=== PATIENT | female | born 1990 | race Hispanic/Latino ===

== ENCOUNTER 2023-12-19 07:49 | Emergency (ER) | payer BC, SELFPAY ==
[2023-12-19 07:53] VITALS: BP 107/74
[2023-12-19 08:07] VITALS: BMI 22.4
[2023-12-19 08:14] VITALS: BP 109/78
--- NOTE | 2023-12-19 08:15 | ED.GENMED ---
History of Present Illness
<Grey Cook PA-C - Last Filed: 12/19/23 09:56>
General
Chief Complaint: Abdominal Symptoms
Source: patient
Exam Limitations: none
Time Seen by Provider: 12/19/23 08:04
Travel History
Have you had any contact with someone who has COVID-19?: No
Do you have any symptoms of coronavirus? Fever > 100 degrees, chills, cough, shortness of breath, sore throat, loss of taste or smell, muscle aches, or headache?: No
History of Present Illness
History of Present Illness:
33-year-old female 11 and half weeks with her first presents with intractable nausea and vomiting. She was seen by her OB 2 weeks ago and was prescribed Reglan however this is not helping. She is unable to keep things down by
mouth. She notes mild diffuse abdominal pain but denies diarrhea or fever. No chest pain or shortness of breath. She had an ultrasound at her last OB visit which demonstrated intrauterine . She is healthy otherwise. No other complaints
at this time
Phy Exam
<Grey Cook PA-C - Last Filed: 12/19/23 09:56>
Physical Exam
Physical Exam:
General: Overall well-appearing female no acute respiratory distress
HEENT: Normocephalic atraumatic neck is supple mucosa moist
Heart: Regular rate and rhythm no murmurs
Lungs: Clear no wheezing
Abd: Soft, nontender, normal bowel sounds
Ext: NO cyanosis or edema
Course
<Grey Cook PA-C - Last Filed: 12/19/23 09:56>
Orders/Labs/Results
Orders:
Orders
12/19/23 08:13
CMP [Comprehensive Metabolic Panel] Urgent
Complete Blood Count/With Diff Urgent
Lipase Urgent
Ondansetron Injectable [Zofran] 4 mg IV NOW STA
12/19/23 08:14
0.9% Sodium Chloride 1000 ml [Nss] 1,000 ml IV BOLUS
Abnormal Lab Results
12/19/23
08:13
Hct 36.3 L %
(37.0-47.0)
MCV 77.7 L fL
(81.0-99.0)
MCH 26.6 L pg
(27.0-31.0)
RDW 15.1 H %
(11.5-14.5)
Eosinophils % 7.3 H %
(0-6)
Sodium 131 L mmol/L
(135-145)
Carbon Dioxide 21 L mmol/L
(22-30)
BUN 5 L mg/dl
(7-17)
Creatinine 0.4 L mg/dL
(0.6-1.0)
12/19/23 08:13
12/19/23 08:13
Vital Signs
Initial and Last Documented VS:
Initial Vital Signs
Temp Pulse Resp BP Pulse Ox
98.3 F 86 16 107/74 98
12/19/23 07:53 12/19/23 07:53 12/19/23 07:53 12/19/23 07:53 12/19/23 07:53
Last Documented Vital Signs
Temp Pulse Resp BP Pulse Ox
98.3 F 75 16 101/69 100
12/19/23 07:53 12/19/23 09:07 12/19/23 09:07 12/19/23 09:07 12/19/23 09:07
<Devon Whitfield, - Last Filed: 12/19/23 09:43>
Orders/Labs/Results
Orders:
Orders
12/19/23 08:13
CMP [Comprehensive Metabolic Panel] Urgent
Complete Blood Count/With Diff Urgent
Lipase Urgent
Ondansetron Injectable [Zofran] 4 mg IV NOW STA
12/19/23 08:14
0.9% Sodium Chloride 1000 ml [Nss] 1,000 ml IV BOLUS
Abnormal Lab Results
12/19/23
08:13
Hct 36.3 L %
(37.0-47.0)
MCV 77.7 L fL
(81.0-99.0)
MCH 26.6 L pg
(27.0-31.0)
RDW 15.1 H %
(11.5-14.5)
Eosinophils % 7.3 H %
(0-6)
Sodium 131 L mmol/L
(135-145)
Carbon Dioxide 21 L mmol/L
(22-30)
BUN 5 L mg/dl
(7-17)
Creatinine 0.4 L mg/dL
(0.6-1.0)
12/19/23 08:13
12/19/23 08:13
Vital Signs
Initial and Last Documented VS:
Initial Vital Signs
Temp Pulse Resp BP Pulse Ox
98.3 F 86 16 107/74 98
12/19/23 07:53 12/19/23 07:53 12/19/23 07:53 12/19/23 07:53 12/19/23 07:53
Last Documented Vital Signs
Temp Pulse Resp BP Pulse Ox
98.3 F 75 16 101/69 100
12/19/23 07:53 12/19/23 09:07 12/19/23 09:07 12/19/23 09:07 12/19/23 09:07
[place];Grey Cook PA-C - Last Filed: 12/19/23 09:56>
MDM/Problems Addressed
Differential Diagnosis Includes:
Nausea with vomiting in early . Abdominal exam benign do not suspect obstruction. Will check labs including lipase. Hydrate and give Zofran for nausea.
<Grey Cook PA-C - Last Filed: 12/19/23 09:56>
*Critical Care Note
Total Time (30-74mins, 75-104mins- exclusive of procedures): Not Applicable
<Grey Cook PA-C - Last Filed: 12/19/23 09:56>
Update Note
Update Note:
Reassessed patient. Nausea improved fluids running through the IV. Labs reviewed. Sodium is 131. Suspect hypovolemic. Will give it some more time and try oral challenge with water and/or applesauce
ED Attending Note
<Grey Cook PA-C - Last Filed: 12/19/23 09:56>
-
Portions of this chart may have been created with voice recognition software.� Occasional wrong word or��sound alike� substitutions may have occurred due to the inherent limitations of voice recognition software.
<Devon Whitfield, - Last Filed: 12/19/23 09:43>
ED Attending Note
Patient seen and examined by attending physician: Yes
I performed the substantive portion of visit, reviewed & personally made and approve the management plan that is documented in note by myself or VANESSA.: Yes
ED Attending Note:
33-year-old female who is approximate 11 weeks and has had progressive persistent nausea and hyperemesis. Patient my evaluation does feel better after IV fluids and after IV antiemetics. Patient denies any pelvic complaints. She
specifically denies vaginal bleeding or pain. No abdominal pain. Exam: Awake, no respiratory distress, no overt signs of severe volume contraction during exam. Assessment and plan: IV hydration, I did recommend small sips of liquids more
frequently as well small meals more frequently. She will follow-up with [facility].
Discharge Plan
Departure
Patient Disposition: Home (Routine Discharge)
Date of Disposition: 12/19/23
Time of Disposition: 09:44
Patient with high blood pressure during this ER visit?: No
Discharge Problem:
Nausea & vomiting
Instructions: Nausea and Vomiting, Adult (DC)
Prescriptions:
New
ondansetron 4 mg tablet,disintegrating
4 mg PO Q8H PRN (Reason: nausea and vomiting) Qty: 10 0RF
Referrals:
Yung Castañeda, [Family Provider] -
Activity Restrictions/Additional Instructions:
Drink plenty of clear liquids. Use zofran if needed for nausea. Please follow up with [facility] for further treatment. Return if needed otherwise.
Interventions
Interventions:
*Risk Screen - Suicide Last Done: 12/19/23 08:55
*General Assessment Last Done: 12/19/23 08:07
*Neglect/Abuse Screening Last Done: 12/19/23 08:55
ED- Fall Risk Assessment Last Done: 12/19/23 08:07
*ED COVID-19 Vaccine History Last Done: 12/19/23 07:53
LX-Njcvpa-Verrogupec Assessment Last Done: 12/19/23 08:07
[2023-12-19] MEDS: ZOFRAN 4 MG IV (08:18)
[2023-12-19] MEDS: NSS 1000 IV (08:19)
[2023-12-19 08:22] LABS: % Basophils 0.8 % (0-2); % Eosinophils 7.3 % (0-6); % Immature Granulocytes 0.3 % (0-0.5); % Lymphocytes 32.6 % (20.5-51.1); % Monocytes 5.7 % (1.7-9.3); % Neutrophils 53.3 % (42.2-75.2); Absolute Basophils 0.1 10^3/uL (0-0.2); Absolute Eosinophils 0.7 10^3/uL (0-0.7); Absolute Lymphocytes 3.2 10^3/uL (1.2-3.4); Absolute Monocytes 0.6 10^3/uL (0.1-0.6); Absolute Neutrophils 5.2 10^3/uL (1.4-6.5); Hematocrit 36.3 % (37.0-47.0); Hemoglobin 12.4 g/dL (12.0-16.0); Mean Corp Hgb Conc. 34.2 g/dL (33.0-37.0); Mean Corpuscular Hgb 26.6 pg (27.0-31.0); Mean Corpuscular Volume 77.7 fL (81.0-99.0); Mean Platelet Volume 8.8 fL (7.4-10.4); Nucleated Red Blood Cells % 0 %; Platelet Count 356 10^3/uL (130-400); Red Blood Cell Count 4.67 10^6/uL (4.20-5.40); Red Cell Dist. Width 15.1 % (11.5-14.5); White Blood Cell Count 9.8 10^3/uL (4.8-10.8)
[2023-12-19 08:40] LABS: ALT (SGPT) 20 U/L (0-35); AST (SGOT) 30 U/L (14-36); Albumin 4.2 g/dl (3.5-5.0); Alkaline Phosphatase 54 U/L (38-126); Blood Urea Nitrogen 5 mg/dl (7-17); Calcium 9.7 mg/dl (8.4-10.2); Carbon Dioxide 21 mmol/L (22-30); Chloride 103 mmol/L (98-107); Estimated Creatinine Clearance 89 ml/min; Glucose 82 mg/dl (70-99); Lipase 52 U/L (23-300); Potassium 3.9 mmol/L (3.5-5.1); Sodium 131 mmol/L (135-145); Total Bilirubin 0.5 mg/dl (0.2-1.3); Total Protein 7.2 g/dl (6.3-8.2); eGFR > 60.00
[2023-12-19 09:00] VITALS: BP 101/69
[2023-12-19 09:07] VITALS: BP 101/69
[2023-12-19 11:04] VITALS: BP 100/69
--- NOTE | 2023-12-19 11:05 | EDRN ---
Reviewed discharge instructions with patient. Verbalized understanding.
== END 2023-12-19 11:20 | disposition home or self-care (01) ==
LOC: EMR 07:49
PROVIDERS: Physician Assistant; EMERGENCY PHYSICIAN Emergency Medicine; FAMILY PHYSICIAN Family Medicine Sports Medicine
DX: O21.9 Vomiting of pregnancy, unspecified (principal); Z3A.11 11 weeks gestation of pregnancy
CPT/HCPCS: 99284; 96374; 96361; 80053; 83690; 85025

== ENCOUNTER → 2023-12-24 09:12 | Outpatient (REF) | payer BC, SELFPAY | LOC: PNTC 09:12 | PROVIDERS: ATTENDING PHYSICIAN Obstetrics & Gynecology | DX: Z36.0 Encounter for antenatal screening for chromosomal anomalies (principal); Z36.82 Encounter for antenatal screening for nuchal translucency | CPT/HCPCS: 36415; 76801; 76813 ==

== ENCOUNTER 2024-03-26 18:37 | Observation (INO) | payer BC, SELFPAY ==
[2024-03-26 15:56] VITALS: BP 102/65
[2024-03-26 16:28] LABS: % Basophils 0.4 % (0-2); % Immature Granulocytes 0.7 % (0-0.5); % Monocytes 3.7 % (1.7-9.3); % Neutrophils 77.2 % (42.2-75.2); Absolute Basophils 0.1 10^3/uL (0-0.2); Absolute Eosinophils 0.1 10^3/uL (0-0.7); Absolute Immature Granulocytes 0.1 10^3/uL (0-0.05); Absolute Lymphocytes 2.3 10^3/uL (1.2-3.4); Absolute Monocytes 0.5 10^3/uL (0.1-0.6); Absolute Neutrophils 10.4 10^3/uL (1.4-6.5); Hematocrit 32.8 % (37.0-47.0); Hemoglobin 11.1 g/dL (12.0-16.0); Mean Corp Hgb Conc. 33.8 g/dL (33.0-37.0); Mean Corpuscular Hgb 26.4 pg (27.0-31.0); Mean Corpuscular Volume 78.1 fL (81.0-99.0); Mean Platelet Volume 8.9 fL (7.4-10.4); Nucleated Red Blood Cells % 0 %; Platelet Count 286 10^3/uL (130-400); Red Cell Dist. Width 14.6 % (11.5-14.5); White Blood Cell Count 13.5 10^3/uL (4.8-10.8)
[2024-03-26 16:40] LABS: ALT (SGPT) < 10 U/L (0-35); AST (SGOT) 23 U/L (14-36); Albumin 3.8 g/dl (3.5-5.0); Alkaline Phosphatase 81 U/L (38-126); Blood Urea Nitrogen 7 mg/dl (7-17); Calcium 9.1 mg/dl (8.4-10.2); Carbon Dioxide 23 mmol/L (22-30); Chloride 107 mmol/L (98-107); Glucose 75 mg/dl (70-99); Potassium 4.5 mmol/L (3.5-5.1); Sodium 137 mmol/L (135-145); Total Bilirubin 0.3 mg/dl (0.2-1.3); Total Protein 6.8 g/dl (6.3-8.2); eGFR > 60.00
[2024-03-26 17:11] VITALS: BP 104/65; BMI 22.1
--- NOTE | 2024-03-26 18:13 | ED.GENMED ---
History of Present Illness
General
Chief Complaint: Abdominal Symptoms
Source: patient
Exam Limitations: none
Time Seen by Provider: 03/26/24 18:01
Travel History
Have you had any contact with someone who has COVID-19?: No
Do you have any symptoms of coronavirus? Fever > 100 degrees, chills, cough, shortness of breath, sore throat, loss of taste or smell, muscle aches, or headache?: No
History of Present Illness
History of Present Illness:
See MDM
Past History
Past History
ED Past Medical History: None
ED Past Surgical History: None
Social History
Tobacco: Non-smoker
Alcohol: None
Phy Exam
Physical Exam
Physical Exam:
See MDM
Course
Orders/Labs/Results
Orders:
Orders
03/26/24 16:17
Complete Blood Count/With Diff Urgent
Comprehensive Metabolic Panel Urgent
03/26/24 18:12
Consult PLANT TECH [PLANT TECH CONSULT] Urgent
Consulting Provider: Arabella Haines.
Was physician already notified: Yes
03/26/24 19:00
Dextrose 5%/0.9%Sodchl 1000 ml [D5/0.9% Sodium Chloride] 1,000 ml Potassium Chloride [KCl] 20 meq Mvi, Adult [Multivitamin] 10 ml FOLic ACID [Folvite] 1 mg Thiamine Injection 100 mg IV 125 mls/hr
Abnormal Lab Results
03/26/24
16:17
WBC 13.5 H 10^3/uL
(4.8-10.8)
Hgb 11.1 L g/dL
(12.0-16.0)
Hct 32.8 L %
(37.0-47.0)
MCV 78.1 L fL
(81.0-99.0)
MCH 26.4 L pg
(27.0-31.0)
RDW 14.6 H %
(11.5-14.5)
Abs Immat Gran (auto) 0.1 H 10^3/uL
(0-0.05)
Absolute Neuts (auto) 10.4 H 10^3/uL
(1.4-6.5)
Immature Gran % 0.7 H %
(0-0.5)
Neutrophils % 77.2 H %
(42.2-75.2)
Lymphocytes % 17.0 L %
(20.5-51.1)
Creatinine 0.4 L mg/dL
(0.6-1.0)
03/26/24 16:17
03/26/24 16:17
Vital Signs
Initial and Last Documented VS:
Initial Vital Signs
Temp Pulse Resp BP Pulse Ox
98.3 F 81 18 102/65 99
03/26/24 15:56 03/26/24 15:56 03/26/24 15:56 03/26/24 15:56 03/26/24 15:56
Last Documented Vital Signs
Temp Pulse Resp BP Pulse Ox
98.3 F 80 16 104/65 100
03/26/24 15:56 03/26/24 17:11 03/26/24 17:11 03/26/24 17:11 03/26/24 17:11
MDM/Problems Addressed
Differential Diagnosis Includes:
HPI and MDM Narrative:
33-year-old female presenting for abdominal cramping and vomiting. She is G1, P0 at 25 weeks gestation. prior to my evaluation, OB did call she can go up to labor and delivery for monitoring.
When I evaluated the patient, she does appear mildly uncomfortable. The Doppler is broken but I did a bedside ultrasound showing live IUP. When patient saw the fetus, she started to feel better. Heartbeat is in the 140s
Physical exam
General: Mildly uncomfortable
HEENT: protecting airway. Dry mucous membranes
Neck: appears supple
CV: No evidence of cyanosis
Resp: No accessory muscle use
Abd: Gravid abdomen
Extremities: No deformities
Neuro: alert
Psych: mildly anxious
Skin: Intact
Problems Addressed including Acute and Chronic Conditions affecting care:
1. Hyperemesis gravidarum
Acuity: acute
Prognosis: unstable
Details: Case discussed with OB who will evaluate and advise of delivery. She will order fluids
Differential Diagnosis (but not limited to): Hyperemesis, miscarriage, dehydration
Testing considered: Formal abdominal ultrasound
Drug therapy (if applicable): OTC meds, please see d/c instruction regarding Rx drugs
Amount and/or Complexity of Data Reviewed
Clinical info obtained from: Patient
External data reviewed: N/A
Labs I independently reviewed (but not limited to): Mild leukocytosis
Radiology: N/A
Pulse Ox: not hypoxic
EKG independently reviewed: N/A
Rebar Worker: N/A
Critical Care: N/A
Risk of Complication:
Social Determinants of health: Good social support
Discussed with other providers: OB
Escalation of Care includes Admit/Obs: Given persistent symptoms, will send to labor and delivery for monitoring
Occasional wrong word or 'sound a like' substitutions may have occurred due to the inherent limitations of voice recognition software. Read the chart carefully and recognize, using context, where substitutions have occurred.
*Critical Care Note
Total Time (30-74mins, 75-104mins- exclusive of procedures): Not Applicable
ED Attending Note
-
Portions of this chart may have been created with voice recognition software.� Occasional wrong word or��sound alike� substitutions may have occurred due to the inherent limitations of voice recognition software.
Discharge Plan
Departure
Patient Disposition: LDRP
Date of Disposition: 03/26/24
Time of Disposition: 18:13
Presentation/result/management discussed w/ accepting MD/DO: OB
Discharge Problem:
Hyperemesis gravidarum with dehydration
Prescriptions:
No Action
ondansetron 4 mg tablet,disintegrating
4 mg PO Q8H PRN (Reason: nausea and vomiting) Qty: 10 0RF
Referrals:
Yung Castañeda DO [Family Provider] -
Interventions
Interventions:
*Risk Screen - Suicide Last Done: 03/26/24 15:56
*General Assessment Last Done: 03/26/24 15:56
*Neglect/Abuse Screening Last Done: 03/26/24 15:56
ED- Fall Risk Assessment Last Done: 03/26/24 17:11
*Nursing Disposition Last Done: 03/26/24 18:28
ER-Jrmhkh-Ehhhulwqxj Assessment Last Done: 03/26/24 17:11
Discharge Date and Time
Print Language: KYRGYZ
[2024-03-26] MEDS: KCL 1021.20000000000005 MEQ IV (19:04)
[2024-03-26] MEDS: KCL 1021.20000000000005 ML IV (19:04)
[2024-03-26] MEDS: KCL 1021.20000000000005 MG IV ×2 (19:04)
[2024-03-26] MEDS: ZOFRAN 4 MG IV (19:54)
[2024-03-26 21:03] VITALS: BMI 23.0
[2024-03-26 23:38] LABS: Urine Albumin Negative (Neg - Trace); Urine Bilirubin Negative (Negative); Urine Character Clear (Clear); Urine Color Yellow; Urine Glucose Negative (Negative); Urine Ketone 3+ (Negative); Urine Leukocyte Negative (Negative); Urine Nitrite Negative (Negative); Urine Occult Blood Negative (Negative); Urine Urobilinogen Negative (Neg - 1+)
== END 2024-03-26 23:52 | disposition home or self-care (01) ==
LOC: LDRP 18:37
PROVIDERS: ADMITTING PHYSICIAN Obstetrics & Gynecology; EMERGENCY PHYSICIAN Student in an Organized Health Care Education/Training Program; FAMILY PHYSICIAN Family Medicine Sports Medicine
DX: O21.1 Hyperemesis gravidarum with metabolic disturbance (principal); R10.9 Unspecified abdominal pain; R19.7 Diarrhea, unspecified; E86.0 Dehydration; O09.512 Supervision of elderly primigravida, second trimester; D56.3 Thalassemia minor; D72.829 Elevated white blood cell count, unspecified; Z3A.25 25 weeks gestation of pregnancy; O99.891 Other specified diseases and conditions complicating pregnancy; R73.03 Prediabetes; E28.39 Other primary ovarian failure
CPT/HCPCS: 80053; 81003; 85025; 99284; G0378

== ENCOUNTER 2024-03-31 16:24 | Observation (INO) | payer BC, SELFPAY ==
[2024-03-31 16:32] VITALS: BP 107/73; BMI 22.2
[2024-03-31] MEDS: KCL 1021.20000000000005 ML IV (17:37)
[2024-03-31] MEDS: KCL 1021.20000000000005 MG IV ×2 (17:37)
[2024-03-31] MEDS: KCL 1021.20000000000005 MEQ IV (17:37)
[2024-03-31 17:46] LABS: Hematocrit 31.8 % (37.0-47.0); Hemoglobin 11.1 g/dL (12.0-16.0); Mean Corp Hgb Conc. 34.9 g/dL (33.0-37.0); Mean Corpuscular Hgb 26.8 pg (27.0-31.0); Mean Corpuscular Volume 76.8 fL (81.0-99.0); Mean Platelet Volume 9.1 fL (7.4-10.4); Platelet Count 267 10^3/uL (130-400); Red Blood Cell Count 4.14 10^6/uL (4.20-5.40); Red Cell Dist. Width 14.2 % (11.5-14.5); White Blood Cell Count 6.5 10^3/uL (4.8-10.8)
[2024-03-31 18:17] LABS: ALT (SGPT) 15 U/L (0-35); AST (SGOT) 29 U/L (14-36); Albumin 3.5 g/dl (3.5-5.0); Alkaline Phosphatase 81 U/L (38-126); Blood Urea Nitrogen 4 mg/dl (7-17); Calcium 9.2 mg/dl (8.4-10.2); Carbon Dioxide 20 mmol/L (22-30); Chloride 103 mmol/L (98-107); Estimated Creatinine Clearance 88 ml/min; Glucose 93 mg/dl (70-99); Potassium 3.5 mmol/L (3.5-5.1); Sodium 131 mmol/L (135-145); Total Bilirubin 0.4 mg/dl (0.2-1.3); Total Protein 6.3 g/dl (6.3-8.2); eGFR > 60.00
[2024-03-31] MEDS: ZOFRAN 4 MG IV (19:31)
[2024-03-31 19:51] LABS: Urine Albumin Negative (Neg - Trace); Urine Bilirubin Negative (Negative); Urine Character Clear (Clear); Urine Color Yellow; Urine Glucose Negative (Negative); Urine Ketone 2+ (Negative); Urine Leukocyte Negative (Negative); Urine Nitrite Negative (Negative); Urine Occult Blood Negative (Negative); Urine Urobilinogen Negative (Neg - 1+)
[2024-03-31] MEDS: TUMS 2 TABLET PO (21:53)
[2024-04-01] MEDS: ZOFRAN 4 MG IV (08:46)
== END 2024-04-01 12:10 | disposition home or self-care (01) ==
LOC: LDRP 16:24
PROVIDERS: ADMITTING PHYSICIAN Obstetrics & Gynecology
DX: K52.9 Noninfective gastroenteritis and colitis, unspecified (principal); Z3A.26 26 weeks gestation of pregnancy; R11.2 Nausea with vomiting, unspecified; D56.3 Thalassemia minor; O99.891 Other specified diseases and conditions complicating pregnancy; R73.03 Prediabetes; E28.39 Other primary ovarian failure; E86.0 Dehydration
CPT/HCPCS: 80053; 81003; 85027

== ENCOUNTER → 2024-04-02 16:51 | Outpatient (REF) | payer BC, SELFPAY | LOC: PNTC 16:51 | PROVIDERS: ATTENDING PHYSICIAN Obstetrics & Gynecology | DX: O09.529 Supervision of elderly multigravida, unspecified trimester (principal) | CPT/HCPCS: 76816 ==

== ENCOUNTER → 2024-05-20 16:40 | Outpatient (REF) | payer BC, SELFPAY | LOC: PNTC 16:40 | PROVIDERS: ATTENDING PHYSICIAN Obstetrics & Gynecology | DX: O09.529 Supervision of elderly multigravida, unspecified trimester (principal) | CPT/HCPCS: 76816 ==

== ENCOUNTER → 2024-06-16 16:38 | Outpatient (REF) | payer BC, SELFPAY | LOC: PNTC 16:38 | PROVIDERS: ATTENDING PHYSICIAN Obstetrics & Gynecology | DX: O09.519 Supervision of elderly primigravida, unspecified trimester (principal) | CPT/HCPCS: 36415; 76816; 86850; 86900; 86901 ==

== ENCOUNTER 2024-07-04 06:20 | Inpatient (IN) | payer BC, SELFPAY ==
[2024-07-04 06:34] VITALS: BP 118/76; BMI 25.7
[2024-07-04 07:25] LABS: Hematocrit 32.3 % (37.0-47.0); Hemoglobin 11.3 g/dL (12.0-16.0); Mean Corpuscular Hgb 26.8 pg (27.0-31.0); Mean Corpuscular Volume 76.5 fL (81.0-99.0); Mean Platelet Volume 9.8 fL (7.4-10.4); Platelet Count 186 10^3/uL (130-400); Red Blood Cell Count 4.22 10^6/uL (4.20-5.40); Red Cell Dist. Width 15.2 % (11.5-14.5); White Blood Cell Count 7.5 10^3/uL (4.8-10.8)
[2024-07-04] MEDS: ANCEF 10 IV (07:42)
[2024-07-04] MEDS: BICITRA 30 ML PO (07:42)
[2024-07-04] MEDS: LR 1000 IV ×2 (07:42→15:29)
[2024-07-04] MEDS: TYLENOL 1000 MG PO (07:43)
[2024-07-04] MEDS: TORADOL 15 MG IV ×3 (10:32→22:33)
[2024-07-04] MEDS: DEMEROL 12.5 MG IV (10:34)
[2024-07-04] MEDS: ZOFRAN 4 MG IV (15:28)
[2024-07-04] MEDS: VALTREX 2000 MG PO (18:36)
[2024-07-05] MEDS: TORADOL 15 MG IV (04:49)
[2024-07-05] MEDS: VALTREX 2000 MG PO (04:50)
[2024-07-05 05:33] LABS: Hematocrit 24.3 % (37.0-47.0); Hemoglobin 8.6 g/dL (12.0-16.0); Mean Corp Hgb Conc. 35.4 g/dL (33.0-37.0); Mean Corpuscular Volume 76.4 fL (81.0-99.0); Mean Platelet Volume 9.9 fL (7.4-10.4); Platelet Count 178 10^3/uL (130-400); Red Blood Cell Count 3.18 10^6/uL (4.20-5.40); Red Cell Dist. Width 15.1 % (11.5-14.5); White Blood Cell Count 12.1 10^3/uL (4.8-10.8)
--- NOTE | 2024-07-05 08:00 | W.PN.ANS.POP ---
Anesthesia Post Operative
- Anesthesia Post Op Note
Vital Signs Stable-See Nursing Note: Yes
Airway Patent: Yes
Adequate Pain Control: Yes
Change in Mental Status: No
Current Postoperative Nausea & Vomiting: No
Anesthesia Complications: No
General Anesthetic Recall: No
Unplanned Admission: No
Post Op Hydration Adequate: Yes
[2024-07-05] MEDS: FEOSOL 325 MG PO (09:06)
[2024-07-05] MEDS: SENOKOT-S 1 TABLET PO (09:07)
[2024-07-05] MEDS: MOTRIN 600 MG PO ×3 (10:37→22:42)
[2024-07-05] MEDS: TYLENOL 650 MG PO ×3 (10:37→22:42)
[2024-07-05] MEDS: MYLICON 80 MG PO (20:47)
[2024-07-06] MEDS: MYLICON 80 MG PO ×2 (00:10→16:57)
[2024-07-06] MEDS: MOTRIN 600 MG PO ×3 (06:10→22:00)
[2024-07-06] MEDS: TYLENOL 650 MG PO ×3 (06:11→22:01)
[2024-07-06] MEDS: FEOSOL 325 MG PO (10:38)
[2024-07-07] MEDS: TYLENOL 650 MG PO ×2 (04:26→10:27)
[2024-07-07] MEDS: MOTRIN 600 MG PO ×2 (04:26→10:28)
[2024-07-07] MEDS: SENOKOT-S 1 TABLET PO (08:09)
[2024-07-07] MEDS: FEOSOL 325 MG PO (08:09)
--- NOTE | 2024-07-07 11:19 | W.DS.TRANS ---
DC Summary - Spanish Interpreter/Translator
-
Discharge Instructions:
Discharge Diagnosis/Procedures s/p PLTCS
Driving Restrictions No driving for 2 weeks
Instructions:
Stand-Alone Forms:
Changes to Home Medications: No
Discharge Medications:
DC Medications w/original date entered in [facility]
No Meds [No Current Medications] 07/04/24
Home Medication Changes
Pending Results: No
Total time spent discharging patient (in min): 20
--- NOTE | 2024-07-07 14:29 | W.DCSUMMARY ---
Discharge Summary
Discharge Data
Date of Admission: 07/04/24
Date of Discharge: 07/07/24
-
Pending Results: No
Hospital Course
Patient is a 34yo G1 now P1001 who presented to L&D for scheduled elective PLTCS for suspected macrosomia. The c section was uncomplicated. She delivered a viable female infant weighing 7lb 3oz. POD#1 Hgb was 8.6 and she was asymptomatic for anemia.
She was meeting all of her postoperative milestones and was discharged on POD#3 with discharge instructions and return precautions. She was instructed to follow up in 2 weeks.
Discharge Plan
-
Patient Disposition: Home (Routine Discharge)
Discharge Diagnosis/Procedures: s/p PLTCS
Condition: Good
Driving Restrictions: No driving for 2 weeks
Stand Alone Forms: LDRP Delivery
Referrals:
Heath Henry MD [Active] - in two weeks
Arabella Haines DO [Family Provider] -
Prescriptions:
No Action
No Current Medications
0
Discharge Orders:
Discharge Patient (As Directed); Ordered 07/07/24
Ordered By: Reema Andres
Discharge Date and Time
Discharge Date/Time: 07/07/24 12:40
Print Language: AZERI
[2024-07-08 15:12] LABS: Syphilis/T. pallidum Ab Reflex Negative (Negative)
== END 2024-07-07 12:40 | disposition home or self-care (01) | DRG 787 ==
LOC: LDRP 06:20
PROVIDERS: ADMITTING PHYSICIAN Obstetrics & Gynecology; FAMILY PHYSICIAN Obstetrics & Gynecology
PROC: 10D00Z1 Extraction of Products of Conception, Low, Open Approach (ICD-10-PCS; 2024-07-04)
DX: O36.63X0 Maternal care for excessive fetal growth, third trimester, not applicable or unspecified (principal); E23.0 Hypopituitarism; O99.284 Endocrine, nutritional and metabolic diseases complicating childbirth; O99.892 Other specified diseases and conditions complicating childbirth; R73.03 Prediabetes; Z3A.39 39 weeks gestation of pregnancy; Z37.0 Single live birth
CPT/HCPCS: 88307; 59025; 85027; 86780; 86850; 86900; 86901

== ENCOUNTER 2024-08-13 07:56 | Observation (INO) | payer BC, SELFPAY ==
[2024-08-13 04:06] VITALS: BMI 22.0
[2024-08-13 04:07] VITALS: BP 96/62
[2024-08-13 04:30] LABS: Blood Urea Nitrogen 24 mg/dl (7-17); Carbon Dioxide 27 mmol/L (22-30); Chloride 103 mmol/L (98-107); Estimated Creatinine Clearance 66 ml/min; Glucose 107 mg/dl (70-99); Potassium 4.1 mmol/L (3.5-5.1); Sodium 141 mmol/L (135-145); eGFR > 60.00
[2024-08-13 04:31] LABS: ALT (SGPT) 40 U/L (0-35); AST (SGOT) 59 U/L (14-36); Albumin 4.1 g/dl (3.5-5.0); Alkaline Phosphatase 91 U/L (38-126); Calcium 9.4 mg/dl (8.4-10.2); Lipase 86 U/L (23-300); Total Bilirubin 0.3 mg/dl (0.2-1.3); Total Protein 6.7 g/dl (6.3-8.2)
[2024-08-13 04:32] LABS: APTT 38.3 Sec (23.4-35.0); INR 1.03; PT 13.3 Sec (11.4-14.6)
--- NOTE | 2024-08-13 04:34 | DOWNTIME ---
There was a [employer] Client Sausage Inspector Downtime on 08/13/2024 from 0100 to 08/13/2024 at 0355. Downtime documentation of patient's care, including medication administrations, has been reconciled in the electronic record per guidelines. Refer to the
patient's paper chart under the miscellaneous tab to see printed paper medication records and downtime forms.
--- NOTE | 2024-08-13 04:43 | ED.GENMED ---
History of Present Illness
<CRYSTAL Posadas - Last Filed: 08/13/24 06:15>
General
Chief Complaint: Abdominal Pain
Source: patient
Exam Limitations: none
Time Seen by Provider: 08/13/24 03:56
Nursing documentation reviewed up to this point in time: agreed with
History of Present Illness
History of Present Illness:
Patient is a 34 yo F w/ PMH of 6 weeks ago who presents w/ RUQ pain x4hrs. Pt reports pain woke her from sleep around 11 pm. Reports pain was in center of trunk in between ribs a first then moved to RUQ. Pain is severe and radiates to L
flank. Reports taking Tylenol w/o relief. Reports tenderness to the touch and being unable to sit still due to pain. Also reports 1 episode of vomiting when pain began. Reports it was a lot of vomit and tasted bitter. Denies any nausea,
constipation, diarrhea, GERMAN, dizziness, or other pains. Denies any new foods or recent illness. Denies any similar episodes previously. Report pain has been improving since laying still in ED bed. She denies any hx of kidney or gallstones. Notes
family hx of gallstones & gallbladder removal in her maternal aunt.
Past History
<CRYSTAL Posadas - Last Filed: 08/13/24 06:15>
Past History
ED Past Medical History: None
ED Past Surgical History: None
Social History
Tobacco: Non-smoker
Alcohol: None
Review of Systems
<CRYSTAL Posadas - Last Filed: 08/13/24 06:15>
Review of Systems
Constitutional: Denies fever, fatigue or chills
Respiratory: Denies trouble breathing
Cardiac: Denies chest pain or palpitations
ABD/GI: Reports abdominal pain and vomiting; Denies nausea, diarrhea or constipated
: Reports no symptoms
Musculoskeletal: Reports no symptoms
Neurological: Denies dizzy or headache
Phy Exam
<CRYSTAL Posadas - Last Filed: 08/13/24 06:15>
General Physical Exam
General Presentation: moderate distress
General age: appears stated age
General Habitus: normal
Cardiovascular Exam
Cardiovascular Exam: regular rate/rhythm, no edema, no gallop and no murmur
Pulmonary Exam
Pulmonary Exam: lungs clear, no respiratory distress, no rales, no crackles, no rhonchi and no wheezing
Course
<CRYSTAL Posadas - Last Filed: 08/13/24 06:15>
Orders/Labs/Results
Orders:
Orders
08/13/24 03:57
Urinalysis Reflex To Culture Urgent
US Abdomen Complete/Upper Urgent
Comment:
Reason For Exam: ruq abd pain
08/13/24 04:08
Complete Blood Count/With Diff Urgent
Comprehensive Metabolic Panel Urgent
Lipase Urgent
PTT Urgent
Prothrombin Time Urgent
Abnormal Lab Results
08/13/24
04:08
WBC 11.7 H 10^3/uL
(4.8-10.8)
RBC 4.10 L 10^6/uL
(4.20-5.40)
Hgb 10.9 L g/dL
(12.0-16.0)
Hct 32.7 L %
(37.0-47.0)
MCV 79.8 L fL
(81.0-99.0)
MCH 26.6 L pg
(27.0-31.0)
Absolute Neuts (auto) 7.6 H 10^3/uL
(1.4-6.5)
Absolute Monos (auto) 0.7 H 10^3/uL
(0.1-0.6)
APTT 38.3 H Sec
(23.4-35.0)
BUN 24 H mg/dl
(7-17)
Glucose 107 H mg/dl
(70-99)
AST 59 H U/L
(14-36)
ALT 40 H U/L
(0-35)
08/13/24 04:08
08/13/24 04:08
Vital Signs
Initial and Last Documented VS:
Initial Vital Signs
Temp Pulse Resp BP Pulse Ox
98.0 F 60 16 96/62 98
08/13/24 04:07 08/13/24 04:07 08/13/24 04:07 08/13/24 04:07 08/13/24 04:07
Last Documented Vital Signs
Temp Pulse Resp BP Pulse Ox
98.0 F 86 16 111/84 99
08/13/24 04:07 08/13/24 06:00 08/13/24 06:00 08/13/24 06:00 08/13/24 06:00
<Alfredo Gilliam, DO - Last Filed: 08/13/24 06:07>
Orders/Labs/Results
Orders:
Orders
08/13/24 03:57
Urinalysis Reflex To Culture Urgent
US Abdomen Complete/Upper Urgent
Comment:
Reason For Exam: ruq abd pain
08/13/24 04:08
Complete Blood Count/With Diff Urgent
Comprehensive Metabolic Panel Urgent
Lipase Urgent
PTT Urgent
Prothrombin Time Urgent
Abnormal Lab Results
08/13/24
04:08
WBC 11.7 H 10^3/uL
(4.8-10.8)
RBC 4.10 L 10^6/uL
(4.20-5.40)
Hgb 10.9 L g/dL
(12.0-16.0)
Hct 32.7 L %
(37.0-47.0)
MCV 79.8 L fL
(81.0-99.0)
MCH 26.6 L pg
(27.0-31.0)
Absolute Neuts (auto) 7.6 H 10^3/uL
(1.4-6.5)
Absolute Monos (auto) 0.7 H 10^3/uL
(0.1-0.6)
APTT 38.3 H Sec
(23.4-35.0)
BUN 24 H mg/dl
(7-17)
Glucose 107 H mg/dl
(70-99)
AST 59 H U/L
(14-36)
ALT 40 H U/L
(0-35)
08/13/24 04:08
08/13/24 04:08
Vital Signs
Initial and Last Documented VS:
Initial Vital Signs
Temp Pulse Resp BP Pulse Ox
98.0 F 60 16 96/62 98
08/13/24 04:07 08/13/24 04:07 08/13/24 04:07 08/13/24 04:07 08/13/24 04:07
Last Documented Vital Signs
Temp Pulse Resp BP Pulse Ox
98.0 F 86 16 111/84 99
08/13/24 04:07 08/13/24 06:00 08/13/24 06:00 08/13/24 06:00 08/13/24 06:00
<CRYSTAL Posadas - Last Filed: 08/13/24 06:15>
MDM/Problems Addressed
Differential Diagnosis Includes:
cholelithiasis, cholecystitis, nephrolithiasis
<CRYSTAL Posadas - Last Filed: 08/13/24 06:15>
*Critical Care Note
Total Time (30-74mins, 75-104mins- exclusive of procedures): Not Applicable
<Alfredo Gilliam DO - Last Filed: 08/13/24 06:07>
*Radiology
Radiology exam reviewed: radiology read reviewed
*Pulse Oximetry
Patient hypoxic: no
Data Reviewed
Review of Other/Old Records Reveals: Labs
Source: patient and family
<Alfredo Gilliam DO - Last Filed: 08/13/24 06:07>
Update Note
Update Note:
RUQ ABDOMINAL ULTRASOUND
IMPRESSION
Mobile small gallstones in the gallbladder is distended. Mild gallbladder wall thickening at 5.6 mm with mild edema in the wall and trace pericholecystic fluid. No sonographic Allen's sign (but the patient received pain medications). No other
signs of cholecystitis. Common bile duct is unremarkable at 3.1 mm. Constellation findings may reflect early acute cholecystitis in the correct clinical context. Other considerations include hepatitis or other fluid overloaded state, consider
further workup or followup ultrasound especially if symptoms persist or progress.
Remainder of the visualized upper abdomen is unremarkable.
[Case discussed with Dr. Gilliam at 5:50 AM Eastern time
ED Attending Note
<CRYSTAL Posadas - Last Filed: 08/13/24 06:15>
-
Portions of this chart may have been created with voice recognition software.� Occasional wrong word or��sound alike� substitutions may have occurred due to the inherent limitations of voice recognition software.
<Alfredo Gilliam DO - Last Filed: 08/13/24 06:07>
ED Attending Note
Patient seen and examined by attending physician: Yes
I performed the substantive portion of visit, reviewed & personally made and approve the management plan that is documented in note by myself or VANESSA.: Yes
ED Attending Note:
34-year-old female presents to the emergency department with right upper quadrant abdominal pain that has been present for the last 4 hours. She states that the pain waxed and waned and was severe. She did take Tylenol without initial relief.
Denies fever, chills, chest pain, or shortness of breath. Patient was seen in conjunction with the PA student. I have reviewed and agree with the history and treatment plan presented. On my independent physical exam, patient is awake, alert, and
oriented x3, no acute distress on exam. Negative McBurney's point tenderness. Negative Allen sign. Good bowel sounds x 4 quadrants. Heart is regular rate rhythm. Lungs are clear to auscultation bilaterally.
Patient is by 5 weeks. She is under the care of of Dr. Henry. She still takes vitamins.
Discharge Plan
Departure
Patient Disposition: Admit
Date of Disposition: 08/13/24
Time of Disposition: 06:06
Admit to: Med/Surg
Admit to doctor: Byron
Presentation/result/management discussed w/ accepting MD/DO: Byron
Condition: Fair
Discharge Problem:
Acute cholecystitis
Prescriptions:
No Action
No Current Medications
0
Referrals:
NONE,* [Family Provider] -
Interventions
Interventions:
*Risk Screen - Suicide Last Done: 08/13/24 04:20
*General Assessment Last Done: 08/13/24 04:20
*Neglect/Abuse Screening Last Done: 08/13/24 04:20
ED- Fall Risk Assessment Last Done: 08/13/24 04:05
*ED COVID-19 Vaccine History Last Done: 08/13/24 04:20
MG-Wifviz-Brwsjgnsfp Assessment Last Done: 08/13/24 04:05
Discharge Date and Time
Print Language: POLISH
[2024-08-13 05:04] VITALS: BP 91/74
[2024-08-13 05:06] LABS: % Basophils 0.4 % (0-2); % Eosinophils 1.5 % (0-6); % Immature Granulocytes 0.3 % (0-0.5); % Lymphocytes 26.4 % (20.5-51.1); % Monocytes 6.3 % (1.7-9.3); % Neutrophils 65.1 % (42.2-75.2); Absolute Basophils 0.1 10^3/uL (0-0.2); Absolute Eosinophils 0.2 10^3/uL (0-0.7); Absolute Lymphocytes 3.1 10^3/uL (1.2-3.4); Absolute Monocytes 0.7 10^3/uL (0.1-0.6); Absolute Neutrophils 7.6 10^3/uL (1.4-6.5); Hematocrit 32.7 % (37.0-47.0); Hemoglobin 10.9 g/dL (12.0-16.0); Mean Corp Hgb Conc. 33.3 g/dL (33.0-37.0); Mean Corpuscular Hgb 26.6 pg (27.0-31.0); Mean Corpuscular Volume 79.8 fL (81.0-99.0); Mean Platelet Volume 9.7 fL (7.4-10.4); Nucleated Red Blood Cells % 0 %; Platelet Count 249 10^3/uL (130-400); Red Cell Dist. Width 14.3 % (11.5-14.5); White Blood Cell Count 11.7 10^3/uL (4.8-10.8)
[2024-08-13 06:00] VITALS: BP 111/84
--- NOTE | 2024-08-13 06:37 | HPS.HSE ---
Addendum entered and electronically signed by Brad Matthews MD 08/13/24 12:25:
I saw and examined the patient.
The Wire Inspector's note was reviewed and I agree with the note.
Comment: Pt's pain has totally resolved. She describes severe pain that began last night and lasted for about 6 hours. Initially at epigastrium but migrated to RUQ. She endorses n/v, denies f/c, denies changes to stool/urine. Never had this pain
before. Now feels back to baseline, was pumping breast milk during my encounter and comfortable. Exam benign. Suspect biliary colic, possibly passed a small stone. Plan for PO challenge and home if tolerates. She was advised to f/u in my office if
she wishes to pursue CCY. She plans to try dietary modifications and delay surgery as such as possible as she is recovering from .
Original Note:
Family Physician
-
Family Physician: * NONE
Chief Complaint
-
ruq pain
History of Present Illness
34 yo female 5 weeks post via (baby girl) who presents w/ RUQ pain x4hrs. Pt reports pain woke her from sleep around 11 pm. Reports pain was in center of trunk in between ribs a first then moved to RUQ. Pain is severe and radiates
to L flank. Reports taking Tylenol w/o relief. Reports tenderness to the touch and being unable to sit still due to pain. Also reports 1 episode of vomiting when pain began. Reports it was a lot of vomit and tasted bitter. Denies any nausea,
constipation, diarrhea, GERMAN, dizziness, or other pains. Denies any new foods or recent illness. Denies any similar episodes previously. She denies any hx of kidney or gallstones. Notes family hx of gallstones & gallbladder removal in her maternal
aunt. Currently pt denies pain.
ultrasound: Mobile small gallstones in the gallbladder is distended. Mild gallbladder wall thickening at 5.6 mm with mild edema in the wall and trace pericholecystic fluid. No sonographic Allen's sign (but the patient received pain medications).
No other signs of cholecystitis. Common bile duct is unremarkable at 3.1 mm. Constellation findings may reflect early acute cholecystitis in the correct clinical context. Other considerations include hepatitis or other fluid overloaded state,
consider further workup or followup ultrasound especially if symptoms persist or progress.
Remainder of the visualized upper abdomen is unremarkable.
Medical History
Past Medical History
Past Medical History: Reports None
Past Surgical History: Reports (07/04/24 baby girl)
Social History
Tobacco: Non-smoker
Alcohol: None
Drug: None
Personal:
Living: With Family
Employment: Employed
Family History
Family History: Other (aunt with gallstones)
Allergies / Home Medications
Allergies reflects when Allergies were last updated in [employer].
Home Medications with original date entered in [employer]
Allergy/Medication List:
vitamins po daily
Review of Systems
-
History Source: Patient
A 12 point ROS was completed and negative except as noted: Yes
Constitutional: Reports No Symptoms
EENT: Reports No Symptoms
Respiratory: Reports No Symptoms
Cardiac: Reports No Symptoms
Abdomen/GI: Reports Abdominal Pain and Vomiting
: Reports No Symptoms
Musculoskeletal: Reports No Symptoms
Skin: Reports Other (c section incision with stables)
Neurological: Reports No Symptoms
Endocrine: Reports No Symptoms
Hematologic/Lymphatic: Reports No Symptoms
Psych: Reports No Symptoms
Physical Exam
Vital Signs
Vital Signs
Temp Pulse Resp BP Pulse Ox
98.0 F 86 16 111/84 99
08/13/24 04:07 08/13/24 06:00 08/13/24 06:00 08/13/24 06:00 08/13/24 06:00
Physical Exam
General: Well Developed, Well Nourished, No Apparent Distress and Comfortable
HEENT: NormoCephalic, Anicteric and Moist mucous membranes
Respiratory: Non Labored Respirations
Cardiac: S1/S2
GI: Soft, Non Tender and Normal Bowel Sounds
Rectal: Deferred by Provider
Genito-urinary: Deferred by me
Musculoskeletal: No Clubbing
Skin: Warm
Neuro: Awake, Alert, Oriented, AO x 3 and No Motor Deficits
Hematologic/Lymphatic: No Lymphadenopathy
Laboratory Results
-
08/13/24 04:08
08/13/24 04:08
Laboratory Results
PT 13.3 Sec (11.4-14.6) 08/13/24 04:08
INR 1.03 08/13/24 04:08
APTT 38.3 Sec (23.4-35.0) H 08/13/24 04:08
Total Bilirubin 0.3 mg/dl (0.2-1.3) 08/13/24 04:08
AST 59 U/L (14-36) H 08/13/24 04:08
ALT 40 U/L (0-35) H 08/13/24 04:08
Alkaline Phosphatase 91 U/L (38-126) 08/13/24 04:08
Lipase 86 U/L (23-300) 08/13/24 04:08
Data Reviewed
-
Ultrasound: Report Reviewed by me and Discussed with Physician
Impression/Plan
-
IMPRESSION:
34 yo female with sudden RUQ abd pain. Found to have acute cholecystitis
PLAN:
Admit to service of Dr Matthews
Med surg obs
#acute cholecystitis
-Npo x meds
-pain control: toradol, tylenol
- WBC 11.7 recheck in am if still here
-ast 59/ ALT 40--> recheck in am
-zosyn q6h
scd : dvt proph
Full code
[2024-08-13 08:14] VITALS: BP 95/72
[2024-08-13] MEDS: ZOSYN 50 IV (08:31)
[2024-08-13 13:24] VITALS: BP 102/70
== END 2024-08-13 13:40 | disposition home or self-care (01) | DRG 776 ==
LOC: ED 07:56
PROVIDERS: ADMITTING PHYSICIAN Surgery; EMERGENCY PHYSICIAN Student in an Organized Health Care Education/Training Program
DX: O99.63 Diseases of the digestive system complicating the puerperium (principal); K80.00 Calculus of gallbladder with acute cholecystitis without obstruction; Z83.79 Family history of other diseases of the digestive system
CPT/HCPCS: 76700; 80053; 83690; 85025; 85610; 85730; 96365; 99284; G0378

== ENCOUNTER → 2025-04-09 16:19 | Outpatient (REF) | payer BC, SELFPAY | LOC: PNTC 16:19 | PROVIDERS: ATTENDING PHYSICIAN Student in an Organized Health Care Education/Training Program | DX: Z36.0 Encounter for antenatal screening for chromosomal anomalies (principal); Z36.82 Encounter for antenatal screening for nuchal translucency | CPT/HCPCS: 36415 ==

== ENCOUNTER → 2025-06-02 15:57 | Outpatient (REF) | payer BC, SELFPAY | LOC: PNTC 15:57 | PROVIDERS: ATTENDING PHYSICIAN Student in an Organized Health Care Education/Training Program | DX: O09.529 Supervision of elderly multigravida, unspecified trimester (principal) | CPT/HCPCS: 76811; 76817 ==

== ENCOUNTER → 2025-07-21 16:26 | Outpatient (REF) | payer BC, SELFPAY | LOC: PNTC 16:26 | PROVIDERS: ATTENDING PHYSICIAN Obstetrics & Gynecology | DX: O09.529 Supervision of elderly multigravida, unspecified trimester (principal) | CPT/HCPCS: 76816 ==

== ENCOUNTER → 2025-09-03 16:31 | Outpatient (REF) | payer BC, SELFPAY | LOC: PNTC 16:31 | PROVIDERS: ATTENDING PHYSICIAN Obstetrics & Gynecology | DX: O09.523 Supervision of elderly multigravida, third trimester (principal) | CPT/HCPCS: 76816 ==

== ENCOUNTER 2025-10-13 06:28 | Inpatient (IN) | payer BC, SELFPAY ==
[2025-10-13 06:32] VITALS: BMI 25.9
[2025-10-13 06:58] VITALS: BP 101/73
[2025-10-13] MEDS: LR 1000 IV (07:30)
[2025-10-13 07:54] LABS: Hematocrit 33.2 % (37.0-47.0); Hemoglobin 11.4 g/dL (12.0-16.0); Mean Corp Hgb Conc. 34.3 g/dL (33.0-37.0); Mean Corpuscular Volume 79.6 fL (81.0-99.0); Platelet Count 149 10^3/uL (130-400); Red Cell Dist. Width 15.2 % (11.5-14.5)
[2025-10-13] MEDS: ANCEF 10 IV (08:01)
[2025-10-13] MEDS: BICITRA 30 ML PO (08:02)
[2025-10-13] MEDS: TYLENOL 975 MG PO (08:02)
[2025-10-13] MEDS: PITOCIN 30 UNITS/NSS 500 ML IV (08:53)
[2025-10-13] MEDS: TORADOL 15 MG IV ×2 (11:46→17:56)
[2025-10-13] MEDS: VALTREX 2000 MG PO ×2 (12:41→20:08)
[2025-10-13] MEDS: COLACE 100 MG PO (19:45)
[2025-10-14] MEDS: TORADOL 15 MG IV ×2 (00:04→06:07)
[2025-10-14] MEDS: FLUSH (NSS) 3 FLUSH IV ×2 (00:05→06:09)
[2025-10-14 04:38] LABS: Hematocrit 26.8 % (37.0-47.0); Hemoglobin 9.4 g/dL (12.0-16.0); Mean Corp Hgb Conc. 35.1 g/dL (33.0-37.0); Mean Corpuscular Volume 81.0 fL (81.0-99.0); Platelet Count 131 10^3/uL (130-400); Red Cell Dist. Width 14.9 % (11.5-14.5)
[2025-10-14] MEDS: MOTRIN 600 MG PO ×2 (12:36→18:40)
[2025-10-14] MEDS: TYLENOL 650 MG PO ×2 (12:36→18:40)
[2025-10-14] MEDS: PRENATAL PLUS 1 TABLET PO (12:40)
[2025-10-14] MEDS: COLACE 100 MG PO ×2 (12:48→20:16)
[2025-10-14] MEDS: MYLICON 80 MG PO ×2 (14:12→22:28)
[2025-10-15] MEDS: TYLENOL 650 MG PO ×3 (00:56→14:14)
[2025-10-15] MEDS: MOTRIN 600 MG PO ×3 (00:56→14:14)
[2025-10-15] MEDS: COLACE 100 MG PO (07:20)
[2025-10-15] MEDS: FEOSOL 325 MG PO (07:20)
[2025-10-15] MEDS: PRENATAL PLUS 1 TABLET PO (07:20)
--- NOTE | 2025-10-15 09:50 | W.DS.TRANS ---
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
-
Discharge Instructions:
Discharge Diagnosis/Procedures rcs
Instructions:
Stand-Alone Forms: LDRP Delivery
Changes to Home Medications: No
Discharge Medications:
DC Medications w/original date entered in [employer]
vit no.95-ferrous fumarate 28 mg-folic acid 800 mcg tablet () 1 tab PO DAILY Supplement 08/13/24
ibuprofen 600 mg tablet 600 mg PO Q6HPRN PRN cramps #60 tabs 10/15/25
Home Medication Changes
Pending Results: No
Total time spent discharging patient (in min): 15
[2025-10-16 16:10] LABS: Syphilis/T. pallidum Ab Reflex Negative (Negative)
== END 2025-10-15 18:03 | disposition home or self-care (01) | DRG 787 ==
LOC: LDRP 06:28
PROVIDERS: ADMITTING PHYSICIAN Obstetrics & Gynecology
PROC: 10D00Z1 Extraction of Products of Conception, Low, Open Approach (ICD-10-PCS; 2025-10-13)
DX: O34.211 Maternal care for low transverse scar from previous cesarean delivery (principal); D62 Acute posthemorrhagic anemia; N85.8 Other specified noninflammatory disorders of uterus; Z3A.39 39 weeks gestation of pregnancy; Z37.0 Single live birth; O90.81 Anemia of the puerperium; O69.81X0 Labor and delivery complicated by cord around neck, without compression, not applicable or unspecified; Z91.199 Patient's noncompliance with other medical treatment and regimen due to unspecified reason
CPT/HCPCS: 36415; 85027; 86780; 86850; 86900; 86901

== ENCOUNTER 2025-10-18 00:31 | Emergency (ER) | payer BC, SELFPAY ==
[2025-10-18 00:46] VITALS: BP 123/84
[2025-10-18 01:29] VITALS: BP 128/88
[2025-10-18 02:00] VITALS: BP 130/92
[2025-10-18 03:00] VITALS: BP 137/85
--- NOTE | 2025-10-18 03:04 | ED.GENMED ---
History of Present Illness
General
Chief Complaint: Post Operative Problem(s)
Source: patient
Time Seen by Provider: 10/18/25 03:02
History of Present Illness
History of Present Illness:
35-year-old female who is 4 days after . She admits that she is not sleeping as much as usual and feels short tempered. She specifically denies feeling depressed, SI or HI. She states that because she was irritable she
provoked an argument with her . He went upstairs to avoid her and confrontation. She says that she was upset and so she was 'stomping' up the stairs somewhat forcefully and then was banging on the door that was closed. She then noted
discomfort in the incisional area with fresh blood. This is since resolved. She denies any pain or bleeding now. She denies any other complaints.
Past History
Past History
ED Past Medical History: None
ED Past Surgical History:
Social History
Tobacco: Non-smoker
Alcohol: None
Drug: None
Personal:
Living: with family
Phy Exam
Physical Exam
Physical Exam:
GENERAL: Alert , in no apparent distress
EYE: pupils equal and reactive
NECK: Supple, no significant adenopathy.
ENT: o/p clr, mmm.
CARDIAC: Regular rate and rhythm .
LUNGS: Clear breath sounds bilaterally, no acute respiratory distress, no wheezes/rales/rhonchi
ABDOMEN: Soft, without focal tenderness, no r/g
NEUROLOGICAL: Alert and oriented, no focal neuro deficits
SKIN: Warm and dry, skin intact. c sx Incision clean, dry, intact with small area of dried blood, no erythema/warmth/swelling
MUSCULOSKELETAL: No edema, well perfused.
PSYCH: Normal and appropriate interaction.
Course
Orders/Labs/Results
Orders:
Orders
10/18/25 00:51
CONSULT Urgent
Comment: .
Vital Signs
Initial and Last Documented VS:
Initial Vital Signs
Temp Pulse Resp BP Pulse Ox
98.8 F 68 20 123/84 98
10/18/25 00:46 10/18/25 00:46 10/18/25 00:46 10/18/25 00:46 10/18/25 00:46
Last Documented Vital Signs
Temp Pulse Resp BP Pulse Ox
98.8 F 68 20 137/85 97
10/18/25 00:46 10/18/25 00:46 10/18/25 00:46 10/18/25 03:00 10/18/25 03:30
*Pulse Oximetry
SaO2: 98
Oxygen Mode of Delivery: Room air
Patient hypoxic: no
*Critical Care Note
Total Time (30-74mins, 75-104mins- exclusive of procedures): Not Applicable
Update Note
Update Note:
Patient presents to the Emergency Department with C-section incision concerns
Number and Complexity of Problems Addressed at the Encounter
� Chronic conditions affecting care:
� Acute Exacerbation and/or Progression of Chronic Illness:
� Differential Diagnosis includes: But not limited to dehiscence, cellulitis, abscess, etc. etc.
Amount and/or Complexity of Data to be Reviewed and Analyzed
� I performed an independent evaluation of and my interpretation is:
EKG:
CT:
Xrays:
Laboratory Studies:
Other:
� Review of other/old records reveals:
� Clinical information was obtained by an independent historian:
� Prescriptions/Medications Considered but not given:
� Further testing considered but not performed:
Risk of Complications and/or Morbidity or Mortality of Patient Management
� Social determinants of health affecting care:
� Discussion with other providers (PCP, Hospitalists, Consultants, etc):
� Escalation of care including admission/observation vs risk of discharge considered: I did confirm with patient after asking her to leave that she feels safe at home and does not feel threatened or otherwise in danger.
She states that her was actually trying to be away from her and go upstairs into her room and close the door because she was acting in an angry manner. She now feels much more calm and again reinforces that she is not suicidal or homicidal
or suffering from depression. Incision shows a small area of dried blood at the lateral aspect without dehiscence, active bleed, erythema, or other abnormalities. suspect dried blood related to forceful events (stomping up steps) but fortunately
no evidence of dehiscence, etc. Stable for d/c with clsoe f/u.
ED Attending Note
-
Portions of this chart may have been created with voice recognition software.� Occasional wrong word or��sound alike� substitutions may have occurred due to the inherent limitations of voice recognition software.
Discharge Plan
Departure
Patient Disposition: Home (Routine Discharge)
Date of Disposition: 10/18/25
Time of Disposition: 03:07
Patient with high blood pressure during this ER visit?: Yes
Condition: Good
Discharge Problem:
Postoperative bleeding from incision
Instructions: BLOOD PRESSURE
Prescriptions:
No Action
PNV no.95-ferrous fumarate-FA [] 28 mg iron- 800 mcg Tablet
1 tab PO DAILY
ibuprofen 600 mg Tablet
600 mg PO Q6HPRN PRN (Reason: cramps) Qty: 60 0RF
Referrals:
Arabella Haines, DO [Active, Gynecology] - Follow up in 2-3 days
UNKNOWN - PT DOES,NOT KNOW [Family Provider]
Activity Restrictions/Additional Instructions:
PLEASE MONITOR THE INCISION AREA, IF YOU DEVELOP FURTHER BLEEDING, REDNESS, WARMTH, PAIN, SWELLING, OR OTHER WORRISOME SIGNS, PLEASE RETURN TO THE ER IMMEDIATELY!
Interventions
Interventions:
*General Assessment Last Done: 10/18/25 00:46
*Neglect/Abuse Screening Last Done: 10/18/25 01:55
*ED COVID-19 Vaccine History Last Done: 10/18/25 00:46
*ED Influenza Vaccine History Last Done: 10/18/25 00:46
[facility] Fall Risk Assessment Tool Last Done: 10/18/25 02:32
*Risk Screen - Suicide (C-SSRS) Last Done: 10/18/25 01:55
*Nursing Disposition Last Done: 10/18/25 03:57
ED-Skin Assessment Last Done: 10/18/25 01:41
Discharge Date and Time
Discharge Date/Time: 10/18/25 03:58
Print Language: BRUNEIAN
== END 2025-10-18 03:58 | disposition home or self-care (01) ==
LOC: EMR 00:31
PROVIDERS: EMERGENCY PHYSICIAN Emergency Medicine
DX: O90.89 Other complications of the puerperium, not elsewhere classified (principal); L76.22 Postprocedural hemorrhage of skin and subcutaneous tissue following other procedure; W22.09XA Striking against other stationary object, initial encounter
CPT/HCPCS: 99283